=== PATIENT | male | born 1995 | race Caucasian/White ===

== ENCOUNTER 2024-02-19 20:38 | Emergency (ER) | payer OTHER | END 2024-02-19 22:44 | disposition home or self-care (01) | LOC: FB.ED 20:38 | DX: S86.012A Strain of left Achilles tendon, initial encounter (principal); Z88.0 Allergy status to penicillin; Z88.5 Allergy status to narcotic agent; X50.0XXA Overexertion from strenuous movement or load, initial encounter; Y93.02 Activity, running | CPT/HCPCS: 73610-LT; 99283 ==